=== PATIENT | female | born 1935 | race Two or more races ===

== ENCOUNTER 2016-03-05 13:50 | Outpatient (CLI) | payer MEDICARE, OTHER | END 2016-03-05 13:51 | disposition home or self-care (01) | DX: I48.91 Unspecified atrial fibrillation (principal); Z79.899 Other long term (current) drug therapy ==

== ENCOUNTER 2016-03-26 13:00 | Outpatient (CLI) | payer MEDICARE, OTHER | END 2016-03-26 13:01 | disposition home or self-care (01) | DX: I48.91 Unspecified atrial fibrillation (principal); Z79.899 Other long term (current) drug therapy ==

== ENCOUNTER 2016-04-09 14:09 | Outpatient (CLI) | payer MEDICARE, OTHER | END 2016-04-09 14:10 | disposition home or self-care (01) | DX: I48.91 Unspecified atrial fibrillation (principal); Z79.899 Other long term (current) drug therapy ==

== ENCOUNTER 2016-04-25 13:29 | Outpatient (CLI) | payer MEDICARE, OTHER | END 2016-04-25 13:30 | disposition home or self-care (01) | DX: I48.91 Unspecified atrial fibrillation (principal); I48.0 Paroxysmal atrial fibrillation; Z79.899 Other long term (current) drug therapy; I10 Essential (primary) hypertension ==

== ENCOUNTER 2016-04-29 | Outpatient (CLI) | payer MEDICARE, OTHER | END 2016-04-29 20:14 | disposition EMS.NT ==

== ENCOUNTER 2016-04-30 | Outpatient (CLI) | payer MEDICARE, OTHER | END 2016-04-30 18:10 | disposition short-term general hospital (02) | CPT/HCPCS: A0170; A0425; A0427 ==

== ENCOUNTER 2016-05-27 13:34 | Outpatient (CLI) | payer MEDICARE, OTHER | END 2016-05-27 13:35 | disposition home or self-care (01) | DX: Z53.9 Procedure and treatment not carried out, unspecified reason (principal) ==

== ENCOUNTER 2016-05-28 12:05 | Outpatient (CLI) | payer MEDICARE, OTHER | END 2016-05-28 12:06 | disposition home or self-care (01) | DX: M81.0 Age-related osteoporosis without current pathological fracture (principal); Z78.0 Asymptomatic menopausal state; I48.91 Unspecified atrial fibrillation; Z79.899 Other long term (current) drug therapy ==

== ENCOUNTER 2016-05-28 13:05 | Outpatient (CLI) | payer MEDICARE, OTHER | END 2016-05-28 13:06 | disposition home or self-care (01) | DX: I48.91 Unspecified atrial fibrillation (principal); Z79.899 Other long term (current) drug therapy ==

== ENCOUNTER 2016-06-11 13:57 | Outpatient (CLI) | payer MEDICARE, OTHER | END 2016-06-11 13:58 | disposition home or self-care (01) | DX: I48.91 Unspecified atrial fibrillation (principal); Z79.899 Other long term (current) drug therapy ==

== ENCOUNTER 2016-07-02 13:03 | Outpatient (CLI) | payer MEDICARE, OTHER | END 2016-07-02 13:04 | disposition home or self-care (01) | DX: I48.91 Unspecified atrial fibrillation (principal); Z79.899 Other long term (current) drug therapy ==

== ENCOUNTER 2016-07-16 12:35 | Outpatient (CLI) | payer MEDICARE, OTHER | END 2016-07-16 12:36 | disposition home or self-care (01) | LOC: LAB.F 12:35 | PROVIDERS: ATTEND Internal Medicine Cardiovascular Disease | DX: I48.91 Unspecified atrial fibrillation (principal); Z79.899 Other long term (current) drug therapy | CPT/HCPCS: 85610 ==

== ENCOUNTER 2016-07-30 12:44 | Outpatient (CLI) | payer MEDICARE, OTHER | END 2016-07-30 12:45 | disposition home or self-care (01) | LOC: LAB.F 12:44 | PROVIDERS: ATTEND Internal Medicine Cardiovascular Disease | DX: I48.91 Unspecified atrial fibrillation (principal); Z79.899 Other long term (current) drug therapy | CPT/HCPCS: 85610 ==

== ENCOUNTER 2016-08-20 12:31 | Outpatient (CLI) | payer MEDICARE, OTHER | END 2016-08-20 12:32 | disposition home or self-care (01) | LOC: LAB.F 12:31 | PROVIDERS: ATTEND Internal Medicine Cardiovascular Disease | DX: I48.91 Unspecified atrial fibrillation (principal); Z79.899 Other long term (current) drug therapy | CPT/HCPCS: 85610 ==

== ENCOUNTER 2016-09-09 13:33 | Outpatient (CLI) | payer MEDICARE, OTHER | END 2016-09-09 13:34 | disposition home or self-care (01) | LOC: LAB.F 13:33 | PROVIDERS: ATTEND Internal Medicine Cardiovascular Disease | DX: I48.91 Unspecified atrial fibrillation (principal) | CPT/HCPCS: 85610 ==

== ENCOUNTER 2016-10-01 12:43 | Outpatient (CLI) | payer MEDICARE, OTHER | END 2016-10-01 12:44 | disposition home or self-care (01) | LOC: LAB.F 12:43 | PROVIDERS: ATTEND Internal Medicine Cardiovascular Disease | DX: I48.91 Unspecified atrial fibrillation (principal); Z79.899 Other long term (current) drug therapy | CPT/HCPCS: 85610 ==

== ENCOUNTER 2016-10-21 13:59 | Outpatient (CLI) | payer MEDICARE, OTHER | END 2016-10-21 14:00 | disposition home or self-care (01) | LOC: LAB.F 13:59 | PROVIDERS: ATTEND Internal Medicine Cardiovascular Disease | DX: I48.91 Unspecified atrial fibrillation (principal); Z79.899 Other long term (current) drug therapy | CPT/HCPCS: 85610 ==

== ENCOUNTER 2016-11-12 13:55 | Outpatient (CLI) | payer MEDICARE, OTHER | END 2016-11-12 13:56 | disposition home or self-care (01) | LOC: LAB.F 13:55 | PROVIDERS: ATTEND Internal Medicine Cardiovascular Disease | DX: I48.91 Unspecified atrial fibrillation (principal); Z79.899 Other long term (current) drug therapy | CPT/HCPCS: 85610 ==

== ENCOUNTER 2016-12-09 14:09 | Outpatient (CLI) | payer MEDICARE, OTHER | END 2016-12-09 14:10 | disposition home or self-care (01) | LOC: LAB.F 14:09 | PROVIDERS: ATTEND Internal Medicine Cardiovascular Disease | DX: I48.91 Unspecified atrial fibrillation (principal); Z79.899 Other long term (current) drug therapy | CPT/HCPCS: 85610 ==

== ENCOUNTER 2017-01-22 09:45 | Outpatient (CLI) | payer MEDICARE, OTHER | END 2017-01-22 09:46 | disposition home or self-care (01) | LOC: LAB.F 09:45 | PROVIDERS: ATTEND Internal Medicine | DX: I48.91 Unspecified atrial fibrillation (principal); Z79.899 Other long term (current) drug therapy | CPT/HCPCS: 85610 ==

== ENCOUNTER 2017-02-06 13:22 | Outpatient (CLI) | payer MEDICARE, OTHER | END 2017-02-06 13:23 | disposition home or self-care (01) | LOC: LAB.F 13:22 | PROVIDERS: ATTEND Internal Medicine Cardiovascular Disease | DX: I48.91 Unspecified atrial fibrillation (principal); Z79.899 Other long term (current) drug therapy | CPT/HCPCS: 85610 ==

== ENCOUNTER 2017-02-12 14:03 | Outpatient (CLI) | payer MEDICARE, OTHER | END 2017-02-12 14:04 | disposition home or self-care (01) | LOC: LAB.F 14:03 | PROVIDERS: ATTEND Internal Medicine Cardiovascular Disease | DX: I48.91 Unspecified atrial fibrillation (principal); Z79.899 Other long term (current) drug therapy | CPT/HCPCS: 85610 ==

== ENCOUNTER 2017-02-19 10:14 | Outpatient (CLI) | payer MEDICARE, OTHER | END 2017-02-19 10:15 | disposition home or self-care (01) | LOC: LAB.F 10:14 | PROVIDERS: ATTEND Internal Medicine Cardiovascular Disease | DX: I48.91 Unspecified atrial fibrillation (principal); Z79.899 Other long term (current) drug therapy | CPT/HCPCS: 85610 ==

== ENCOUNTER 2017-03-05 13:30 | Outpatient (CLI) | payer MEDICARE, OTHER | END 2017-03-05 13:31 | disposition home or self-care (01) | LOC: LAB.F 13:30 | PROVIDERS: ATTEND Internal Medicine Cardiovascular Disease | DX: I48.91 Unspecified atrial fibrillation (principal); Z79.899 Other long term (current) drug therapy | CPT/HCPCS: 85610 ==

== ENCOUNTER 2017-03-20 10:00 | Outpatient (CLI) | payer MEDICARE, OTHER | END 2017-03-20 10:01 | disposition home or self-care (01) | LOC: LAB.F 10:00 | PROVIDERS: ATTEND Internal Medicine Cardiovascular Disease | DX: I48.91 Unspecified atrial fibrillation (principal); Z79.899 Other long term (current) drug therapy | CPT/HCPCS: 85610 ==

== ENCOUNTER 2017-04-09 13:22 | Outpatient (CLI) | payer MEDICARE, OTHER | END 2017-04-09 13:23 | disposition home or self-care (01) | LOC: LAB.F 13:22 | PROVIDERS: ATTEND Internal Medicine Cardiovascular Disease | DX: I48.91 Unspecified atrial fibrillation (principal); Z79.899 Other long term (current) drug therapy | CPT/HCPCS: 85610 ==

== ENCOUNTER 2017-04-30 09:49 | Outpatient (CLI) | payer MEDICARE, OTHER | END 2017-04-30 09:50 | disposition home or self-care (01) | LOC: LAB.F 09:49 | PROVIDERS: ATTEND Internal Medicine Cardiovascular Disease | DX: I48.91 Unspecified atrial fibrillation (principal); Z79.899 Other long term (current) drug therapy | CPT/HCPCS: 85610 ==

== ENCOUNTER 2017-05-16 07:09 | Outpatient (CLI) | payer MEDICARE, OTHER ==
[2017-05-16 10:22] LABS: BASOPHILS % (AUTO) 0.6 %; EOSINOPHILS # (AUTO) 0.2 10^3/uL (0.0-0.7); EOSINOPHILS % (AUTO) 2.1 %; HGB - HEMOGLOBIN 12.7 g/dL (12.0-16.0); LYMPHOCYTES # (AUTO) 2.6 10^3/uL (1.5-3.5); LYMPHOCYTES % (AUTO) 33.3 %; MEAN CORPUSCULAR HEMOGLOBIN 26.9 pg (27.0-31.0); MEAN CORPUSCULAR HGB CONC 32.7 g/dL (32.0-36.0); MEAN CORPUSCULAR VOLUME 82.1 fL (81.0-99.0); MEAN PLATELET VOLUME 7.8 fL (7.9-10.8); MONOCYTES # (AUTO) 0.7 10^3/uL (0.0-1.0); MONOCYTES % (AUTO) 9.5 %; NEUTROPHILS # (AUTO) 4.3 10^3/uL (1.5-6.6); NEUTROPHILS % (AUTO) 54.5 %; PLT - PLATELET COUNT 228 10^3/uL (130-450); RED BLOOD COUNT 4.72 10^6/uL (4.20-5.40); RED CELL DISTRIBUTION WIDTH 16.2 % (12.0-15.0); WHITE BLOOD COUNT 7.8 x10^3/uL (4.8-10.8)
[2017-05-16 10:36] LABS: BILIRUBIN,URINE NEGATIVE (NEGATIVE); GLUCOSE, URINE (UA) NEGATIVE (NEGATIVE); KETONES,URINE (UA) NEGATIVE (NEGATIVE); LEUKOCYTE ESTERASE, URINE MODERATE (NEGATIVE); NITRITE,URINE NEGATIVE (NEGATIVE); OCCULT BLOOD,URINE TRACE-INTA (NEGATIVE); PROTEIN,URINE NEGATIVE (NEGATIVE); UROBILINOGEN,URINE 0.2 (NORMAL) E.U./dL (NORMAL)
[2017-05-16 10:37] LABS: ALBUMIN 3.9 g/dL (3.2-5.5); ALBUMIN/GLOBULIN RATIO 1.2 (1.0-2.2); ALKALINE PHOSPHATASE 56 IU/L (42-121); ALT ALANINE AMINOTRANSFERASE 25 IU/L (10-60); AST ASPARTATE AMINOTRANSFERASE 31 IU/L (10-42); BILIRUBIN,TOTAL 0.9 mg/dL (0.2-1.0); BUN - BLOOD UREA NITROGEN 22 mg/dL (6-20); CALCIUM 8.8 mg/dL (8.5-10.3); CARBON DIOXIDE - CO2 26 mmol/L (21-32); CHLORIDE 101 mmol/L (101-111); CHOL/HDL RATIO 2.2 (<4.4); CHOLESTEROL 159 mg/dL; CREATININE 0.7 mg/dL (0.4-1.0); CRP - C-REACTIVE PROTEIN 1.4 mg/dL (0-1.0); GFR - MDRD 81 (>89); GLUCOSE 110 mg/dL (70-100); HDL CHOLESTEROL 73 mg/dL; LDL CHOLESTEROL,CALCULATED 76 mg/dL; SODIUM 134 mmol/L (135-145); TOTAL PROTEIN 7.1 g/dL (6.7-8.2); VLDL CHOLESTEROL 10 mg/dL
[2017-05-16 10:43] LABS: CLARITY,URINE CLEAR (CLEAR)
[2017-05-16 10:45] LABS: HB2 TOTAL 13.7 g/dL; HEMOGLOBIN A1C 0.66 g/dL; HEMOGLOBIN A1C % 6.6 % (4.6-6.2)
[2017-05-16 10:46] LABS: THYROID STIMULATING HORMONE 4.01 uIU/mL (0.34-5.60)
[2017-05-16 10:49] LABS: BACTERIA,URINE Few /HPF (None Seen); RBC,URINE 0-5 /HPF (0-5); SQUAMOUS EPITHELIAL CELL,UR RARE Squamous (<= Few)
[2017-05-16 10:52] LABS: CREATININE,URINE 132.6 mg/dL; MICROALBUMIN,URINE 4.9 mg/dL (0-300.0)
== END 2017-05-16 07:10 | disposition home or self-care (01) ==
LOC: LAB.F 07:09
PROVIDERS: ATTEND Internal Medicine
DX: H11.439 Conjunctival hyperemia, unspecified eye (principal); R25.2 Cramp and spasm; R74.8 Abnormal levels of other serum enzymes; R51 Headache; L29.3 Anogenital pruritus, unspecified; M81.0 Age-related osteoporosis without current pathological fracture; M25.359 Other instability, unspecified hip; R20.2 Paresthesia of skin; I10 Essential (primary) hypertension; I48.91 Unspecified atrial fibrillation; E78.5 Hyperlipidemia, unspecified; E11.9 Type 2 diabetes mellitus without complications; Z79.899 Other long term (current) drug therapy
CPT/HCPCS: 36415; 80053; 80061; 81001; 81003; 82043; 82306; 82570; 82607; 83036; 83721; 83735; 84443; 85025; 85651; 86140; 87086

== ENCOUNTER 2017-05-19 15:43 | Outpatient (CLI) | payer MEDICARE, OTHER ==
--- NOTE | 2017-05-20 17:33 | Mammography Report ---
DIGITAL SCREENING MAMMOGRAM: 05/19/2017 CLINICAL INDICATION: An 81-year-old for screening. COMPARISON: 11/2014, 06/2013, 01/2011, 12/2009. TECHNIQUE: Routine CC and MLO projections as well as bilateral laterally exaggerated craniocaudal views were obtained of the breasts. FINDINGS: The breasts demonstrate heterogeneously dense fibroglandular parenchyma bilaterally. Coarse and punctate, typically benign calcifications are present. No suspicious masses, clustered microcalcifications, or regions of architectural distortion are identified. IMPRESSION: BENIGN FINDINGS. RECOMMENDATION: Routine annual screening unless otherwise clinically indicated. BIRADS category 2 benign findings. STANDARD QUALIFYING STATEMENTS 1. This examination was reviewed with the aid of Computed-Aided Detection (CAD). 2. A negative or benign imaging report should not delay biopsy if clinically suspicious findings are present. Consider surgical consultation if warranted. More than 5% of cancers are not identified by imaging. 3. Dense breasts may obscure an underlying neoplasm. TD: 05/20/2017 17:32
== END 2017-05-19 15:44 | disposition home or self-care (01) ==
LOC: DI.S 15:43
PROVIDERS: ATTEND Internal Medicine
DX: Z12.31 Encounter for screening mammogram for malignant neoplasm of breast (principal)
CPT/HCPCS: 77067

== ENCOUNTER 2017-05-26 13:15 | Outpatient (CLI) | payer MEDICARE, OTHER | END 2017-05-26 13:16 | disposition home or self-care (01) | LOC: LAB.F 13:15 | PROVIDERS: ATTEND Internal Medicine Cardiovascular Disease | DX: I48.91 Unspecified atrial fibrillation (principal); Z79.899 Other long term (current) drug therapy | CPT/HCPCS: 85610 ==

== ENCOUNTER 2017-06-24 14:03 | Outpatient (CLI) | payer MEDICARE, OTHER | END 2017-06-24 14:04 | disposition home or self-care (01) | LOC: LAB.F 14:03 | PROVIDERS: ATTEND Internal Medicine Cardiovascular Disease | DX: I48.91 Unspecified atrial fibrillation (principal); Z79.899 Other long term (current) drug therapy | CPT/HCPCS: 85610 ==

== ENCOUNTER 2017-07-21 14:08 | Outpatient (CLI) | payer MEDICARE, OTHER | END 2017-07-21 14:09 | disposition home or self-care (01) | LOC: LAB.F 14:08 | PROVIDERS: ATTEND Internal Medicine Cardiovascular Disease | DX: I48.91 Unspecified atrial fibrillation (principal); Z79.899 Other long term (current) drug therapy | CPT/HCPCS: 85610 ==

== ENCOUNTER 2017-08-20 14:07 | Outpatient (CLI) | payer MEDICARE, OTHER | END 2017-08-20 14:08 | disposition home or self-care (01) | LOC: LAB.F 14:07 | PROVIDERS: ATTEND Internal Medicine Cardiovascular Disease | DX: I48.91 Unspecified atrial fibrillation (principal); Z79.899 Other long term (current) drug therapy | CPT/HCPCS: 85610 ==

== ENCOUNTER 2017-09-10 13:45 | Outpatient (CLI) | payer MEDICARE, OTHER | END 2017-09-10 13:46 | disposition home or self-care (01) | LOC: LAB.F 13:45 | PROVIDERS: ATTEND Internal Medicine Cardiovascular Disease | DX: I48.91 Unspecified atrial fibrillation (principal); Z79.899 Other long term (current) drug therapy | CPT/HCPCS: 85610 ==

== ENCOUNTER 2017-10-01 13:48 | Outpatient (CLI) | payer MEDICARE, OTHER | END 2017-10-01 13:49 | disposition home or self-care (01) | LOC: LAB.F 13:48 | PROVIDERS: ATTEND Internal Medicine Cardiovascular Disease | DX: I48.91 Unspecified atrial fibrillation (principal); Z79.899 Other long term (current) drug therapy | CPT/HCPCS: 85610 ==

== ENCOUNTER 2017-10-22 13:00 | Outpatient (CLI) | payer MEDICARE, OTHER | END 2017-10-22 13:01 | disposition home or self-care (01) | LOC: LAB.F 13:00 | PROVIDERS: ATTEND Internal Medicine Cardiovascular Disease | DX: I48.91 Unspecified atrial fibrillation (principal); Z79.899 Other long term (current) drug therapy | CPT/HCPCS: 85610 ==

== ENCOUNTER 2017-11-19 13:47 | Outpatient (CLI) | payer MEDICARE, OTHER | END 2017-11-19 13:48 | disposition home or self-care (01) | LOC: LAB.F 13:47 | PROVIDERS: ATTEND Internal Medicine Cardiovascular Disease | DX: I48.91 Unspecified atrial fibrillation (principal); Z79.899 Other long term (current) drug therapy | CPT/HCPCS: 85610 ==

== ENCOUNTER 2017-12-17 14:29 | Outpatient (CLI) | payer MEDICARE, OTHER | END 2017-12-17 14:30 | disposition home or self-care (01) | LOC: LAB.F 14:29 | PROVIDERS: ATTEND Internal Medicine Cardiovascular Disease | DX: I48.91 Unspecified atrial fibrillation (principal); Z79.899 Other long term (current) drug therapy | CPT/HCPCS: 85610 ==

== ENCOUNTER 2018-01-14 13:59 | Outpatient (CLI) | payer MEDICARE, OTHER ==
[2018-01-14 18:23] LABS: INR 2.3 (0.8-1.2); PT - PROTHROMBIN TIME 25.5 secs (9.9-12.6)
[2018-01-14 18:30] LABS: CALCIUM 9.1 mg/dL (8.5-10.3); CREATININE 0.9 mg/dL (0.4-1.0); MAGNESIUM 2.3 mg/dL (1.7-2.8)
[2018-01-14 18:32] LABS: HB2 TOTAL 14.1 g/dL; HEMOGLOBIN A1C 0.65 g/dL; HEMOGLOBIN A1C % 6.4 % (4.6-6.2)
== END 2018-01-14 14:00 | disposition home or self-care (01) ==
LOC: LAB.F 13:59
PROVIDERS: ATTEND Internal Medicine
DX: G47.62 Sleep related leg cramps (principal); E11.9 Type 2 diabetes mellitus without complications; R79.89 Other specified abnormal findings of blood chemistry; I48.91 Unspecified atrial fibrillation; Z79.899 Other long term (current) drug therapy
CPT/HCPCS: 36415; 80048; 82607; 83036; 83735; 85610

== ENCOUNTER 2018-02-11 13:53 | Outpatient (CLI) | payer MEDICARE, OTHER | END 2018-02-11 13:54 | disposition home or self-care (01) | LOC: LAB.F 13:53 | PROVIDERS: ATTEND Internal Medicine Cardiovascular Disease | DX: I48.91 Unspecified atrial fibrillation (principal); Z79.899 Other long term (current) drug therapy | CPT/HCPCS: 85610 ==

== ENCOUNTER 2018-03-11 09:59 | Outpatient (CLI) | payer MEDICARE, OTHER | END 2018-03-11 10:00 | disposition home or self-care (01) | LOC: LAB.F 09:59 | PROVIDERS: ATTEND Internal Medicine Cardiovascular Disease | DX: I48.91 Unspecified atrial fibrillation (principal); Z79.899 Other long term (current) drug therapy | CPT/HCPCS: 85610 ==

== ENCOUNTER 2018-04-08 13:39 | Outpatient (CLI) | payer MEDICARE, OTHER | END 2018-04-08 13:40 | disposition home or self-care (01) | LOC: LAB.F 13:39 | PROVIDERS: ATTEND Internal Medicine Cardiovascular Disease | DX: I48.91 Unspecified atrial fibrillation (principal); Z79.899 Other long term (current) drug therapy | CPT/HCPCS: 85610 ==

== ENCOUNTER 2018-04-29 09:58 | Outpatient (CLI) | payer MEDICARE, OTHER | END 2018-04-29 09:59 | disposition home or self-care (01) | LOC: LAB.F 09:58 | PROVIDERS: ATTEND Internal Medicine Cardiovascular Disease | DX: I48.91 Unspecified atrial fibrillation (principal); Z79.899 Other long term (current) drug therapy | CPT/HCPCS: 85610 ==

== ENCOUNTER 2018-05-20 09:50 | Outpatient (CLI) | payer MEDICARE, OTHER | END 2018-05-20 09:51 | disposition home or self-care (01) | LOC: LAB.F 09:50 | PROVIDERS: ATTEND Internal Medicine Cardiovascular Disease | DX: I48.91 Unspecified atrial fibrillation (principal); Z79.899 Other long term (current) drug therapy | CPT/HCPCS: 85610 ==

== ENCOUNTER 2018-06-03 09:36 | Outpatient (CLI) | payer MEDICARE, OTHER | END 2018-06-03 09:37 | disposition home or self-care (01) | LOC: LAB.F 09:36 | PROVIDERS: ATTEND Internal Medicine Cardiovascular Disease | DX: I48.91 Unspecified atrial fibrillation (principal); Z79.899 Other long term (current) drug therapy | CPT/HCPCS: 85610 ==

== ENCOUNTER 2018-06-24 09:51 | Outpatient (CLI) | payer MEDICARE, OTHER | END 2018-06-24 09:52 | disposition home or self-care (01) | LOC: LAB.F 09:51 | PROVIDERS: ATTEND Internal Medicine Cardiovascular Disease | DX: I48.91 Unspecified atrial fibrillation (principal); Z79.899 Other long term (current) drug therapy | CPT/HCPCS: 85610 ==

== ENCOUNTER 2018-07-21 12:46 | Outpatient (CLI) | payer MEDICARE, OTHER | END 2018-07-21 12:47 | disposition home or self-care (01) | LOC: LAB.F 12:46 | PROVIDERS: ATTEND Internal Medicine Cardiovascular Disease | DX: I48.91 Unspecified atrial fibrillation (principal); Z79.899 Other long term (current) drug therapy | CPT/HCPCS: 85610 ==

== ENCOUNTER 2018-08-18 12:54 | Outpatient (CLI) | payer MEDICARE, OTHER | END 2018-08-18 12:55 | disposition home or self-care (01) | LOC: LAB.F 12:54 | PROVIDERS: ATTEND Internal Medicine Cardiovascular Disease | DX: I48.91 Unspecified atrial fibrillation (principal); Z79.899 Other long term (current) drug therapy | CPT/HCPCS: 85610 ==

== ENCOUNTER 2018-09-15 10:40 | Outpatient (CLI) | payer MEDICARE, OTHER | END 2018-09-15 10:41 | disposition home or self-care (01) | LOC: LAB.S 10:40 | PROVIDERS: ATTEND Internal Medicine Cardiovascular Disease | DX: I48.91 Unspecified atrial fibrillation (principal); Z79.899 Other long term (current) drug therapy | CPT/HCPCS: 85610 ==

== ENCOUNTER 2018-10-12 12:27 | Outpatient (CLI) | payer MEDICARE, OTHER | END 2018-10-12 12:28 | disposition home or self-care (01) | LOC: LAB.S 12:27 | PROVIDERS: ATTEND Internal Medicine Cardiovascular Disease | DX: I48.91 Unspecified atrial fibrillation (principal); Z79.899 Other long term (current) drug therapy | CPT/HCPCS: 85610 ==

== ENCOUNTER 2018-11-09 11:19 | Outpatient (CLI) | payer MEDICARE, OTHER | END 2018-11-09 11:20 | disposition home or self-care (01) | LOC: LAB.S 11:19 | PROVIDERS: ATTEND Internal Medicine Cardiovascular Disease | DX: I48.91 Unspecified atrial fibrillation (principal); Z79.899 Other long term (current) drug therapy | CPT/HCPCS: 85610 ==

== ENCOUNTER 2018-12-07 11:48 | Outpatient (CLI) | payer MEDICARE, OTHER | END 2018-12-07 11:49 | disposition home or self-care (01) | LOC: LAB.S 11:48 | PROVIDERS: ATTEND Internal Medicine Cardiovascular Disease | DX: I48.91 Unspecified atrial fibrillation (principal); Z79.899 Other long term (current) drug therapy | CPT/HCPCS: 85610 ==

== ENCOUNTER 2019-01-04 12:14 | Outpatient (CLI) | payer MEDICARE, OTHER ==
[2019-01-04 18:11] LABS: MEAN CORPUSCULAR HEMOGLOBIN 25.5 pg (27.0-31.0); MEAN CORPUSCULAR HGB CONC 30.1 g/dL (32.0-36.0); MEAN CORPUSCULAR VOLUME 84.7 fL (81.0-99.0); MEAN PLATELET VOLUME 9.8 fL (7.9-10.8); RED BLOOD COUNT 5.1 10^6/uL (4.20-5.40); RED CELL DISTRIBUTION WIDTH 18.4 % (12.0-15.0); WHITE BLOOD COUNT 6.6 x10^3/uL (4.8-10.8)
[2019-01-04 18:36] LABS: CALCIUM 9.4 mg/dL (8.5-10.3); CREATININE 0.8 mg/dL (0.4-1.0)
== END 2019-01-04 12:15 | disposition home or self-care (01) ==
LOC: LAB.S 12:14
PROVIDERS: ATTEND Internal Medicine
DX: I10 Essential (primary) hypertension (principal); Z51.81 Encounter for therapeutic drug level monitoring; Z79.01 Long term (current) use of anticoagulants; I48.0 Paroxysmal atrial fibrillation; Z79.899 Other long term (current) drug therapy
CPT/HCPCS: 36415; 80048; 85027; 85610

== ENCOUNTER 2019-01-18 12:14 | Outpatient (CLI) | payer MEDICARE, OTHER | END 2019-01-18 12:15 | disposition home or self-care (01) | LOC: LAB.S 12:14 | PROVIDERS: ATTEND Internal Medicine Cardiovascular Disease | DX: I48.91 Unspecified atrial fibrillation (principal); Z79.899 Other long term (current) drug therapy | CPT/HCPCS: 85610 ==

== ENCOUNTER 2019-02-08 12:19 | Outpatient (CLI) | payer MEDICARE, OTHER | END 2019-02-08 12:20 | disposition home or self-care (01) | LOC: LAB.S 12:19 | PROVIDERS: ATTEND Internal Medicine Cardiovascular Disease | DX: Z79.899 Other long term (current) drug therapy (principal); I48.91 Unspecified atrial fibrillation | CPT/HCPCS: 85610 ==

== ENCOUNTER 2019-03-08 12:29 | Outpatient (CLI) | payer MEDICARE, OTHER | END 2019-03-08 12:30 | disposition home or self-care (01) | LOC: LAB.S 12:29 | PROVIDERS: ATTEND Internal Medicine Cardiovascular Disease | DX: I48.91 Unspecified atrial fibrillation (principal); Z79.899 Other long term (current) drug therapy | CPT/HCPCS: 85610 ==

== ENCOUNTER 2019-03-22 11:11 | Outpatient (CLI) | payer MEDICARE, OTHER | END 2019-03-22 11:12 | disposition home or self-care (01) | LOC: LAB.S 11:11 | PROVIDERS: ATTEND Internal Medicine Cardiovascular Disease | DX: I48.91 Unspecified atrial fibrillation (principal); Z79.899 Other long term (current) drug therapy | CPT/HCPCS: 85610 ==

== ENCOUNTER 2019-04-02 11:41 | Outpatient (CLI) | payer MEDICARE, OTHER | END 2019-04-02 11:42 | disposition home or self-care (01) | LOC: LAB.S 11:41 | PROVIDERS: ATTEND Internal Medicine Cardiovascular Disease | DX: I48.91 Unspecified atrial fibrillation (principal); Z79.899 Other long term (current) drug therapy | CPT/HCPCS: 85610 ==

== ENCOUNTER 2019-04-26 14:29 | Outpatient (CLI) | payer MEDICARE, OTHER | END 2019-04-26 14:30 | disposition home or self-care (01) | LOC: LAB.S 14:29 | PROVIDERS: ATTEND Internal Medicine Cardiovascular Disease | DX: I48.91 Unspecified atrial fibrillation (principal); Z79.899 Other long term (current) drug therapy | CPT/HCPCS: 85610 ==

== ENCOUNTER 2019-05-06 07:13 | Outpatient (CLI) | payer MEDICARE, OTHER ==
[2019-05-06 10:26] LABS: BASOPHILS # (AUTO) 0.1 10^3/uL (0.0-0.1); BASOPHILS % (AUTO) 1.2 %; EOSINOPHILS # (AUTO) 0.1 10^3/uL (0.0-0.7); EOSINOPHILS % (AUTO) 2.1 %; LYMPHOCYTES # (AUTO) 2.7 10^3/uL (1.5-3.5); LYMPHOCYTES % (AUTO) 46.5 %; MEAN CORPUSCULAR HGB CONC 31.9 g/dL (32.0-36.0); MEAN CORPUSCULAR VOLUME 87.8 fL (81.0-99.0); MEAN PLATELET VOLUME 10.3 fL (7.9-10.8); MONOCYTES # (AUTO) 0.5 10^3/uL (0.0-1.0); MONOCYTES % (AUTO) 9.5 %; NEUTROPHILS # (AUTO) 2.3 10^3/uL (1.5-6.6); NEUTROPHILS % (AUTO) 40.3 %; PLT - PLATELET COUNT 245 10^3/uL (130-450); RED CELL DISTRIBUTION WIDTH 16.5 % (12.0-15.0); WHITE BLOOD COUNT 5.7 x10^3/uL (4.8-10.8)
[2019-05-06 10:45] LABS: ALBUMIN 4.2 g/dL (3.2-5.5); ALBUMIN/GLOBULIN RATIO 1.4 (1.0-2.2); ALKALINE PHOSPHATASE 48 IU/L (42-121); ALT ALANINE AMINOTRANSFERASE 29 IU/L (10-60); AST ASPARTATE AMINOTRANSFERASE 32 IU/L (10-42); BILIRUBIN,TOTAL 0.9 mg/dL (0.2-1.0); BUN - BLOOD UREA NITROGEN 21 mg/dL (6-20); CALCIUM 9.1 mg/dL (8.5-10.3); CARBON DIOXIDE - CO2 27 mmol/L (21-32); CHLORIDE 102 mmol/L (101-111); CHOL/HDL RATIO 2.3 (<4.4); CHOLESTEROL 179 mg/dL; CREATININE 0.8 mg/dL (0.4-1.0); GFR - MDRD 69 (>89); GLUCOSE 107 mg/dL (70-100); HDL CHOLESTEROL 77 mg/dL; LDL CHOLESTEROL,CALCULATED 92 mg/dL; LDL/HDL RATIO 1.2 (<4.4); MAGNESIUM 2.2 mg/dL (1.7-2.8); SODIUM 137 mmol/L (135-145); TOTAL PROTEIN 7.3 g/dL (6.7-8.2); VLDL CHOLESTEROL 10 mg/dL
[2019-05-06 10:54] LABS: THYROID STIMULATING HORMONE 4.91 uIU/mL (0.34-5.60)
[2019-05-06 11:02] LABS: HB2 TOTAL 14.5 g/dL; HEMOGLOBIN A1C 0.76 g/dL; HEMOGLOBIN A1C % 6.9 % (4.6-6.2)
[2019-05-06 17:27] LABS: BILIRUBIN,URINE NEGATIVE (NEGATIVE); GLUCOSE, URINE (UA) NEGATIVE (NEGATIVE); KETONES,URINE (UA) NEGATIVE (NEGATIVE); LEUKOCYTE ESTERASE, URINE TRACE (NEGATIVE); NITRITE,URINE NEGATIVE (NEGATIVE); OCCULT BLOOD,URINE NEGATIVE (NEGATIVE); PROTEIN,URINE NEGATIVE (NEGATIVE); UROBILINOGEN,URINE 0.2 (NORMAL) E.U./dL (NORMAL)
[2019-05-06 17:31] LABS: CLARITY,URINE CLEAR (CLEAR)
[2019-05-06 17:35] LABS: CREATININE,URINE 97.6 mg/dL; MICROALBUM/CREATININE RATIO,UR 44.1 ug/mg (<30.0); MICROALBUMIN,URINE 4.3 mg/dL (0-300.0)
[2019-05-06 17:44] LABS: BACTERIA,URINE Rare /HPF (None Seen); CASTS, URINE 0-2 Hyaline Casts /LPF; RBC,URINE 0-5 /HPF (0-5); SQUAMOUS EPITHELIAL CELL,UR FEW Squamous (<= Few)
== END 2019-05-06 07:14 | disposition home or self-care (01) ==
LOC: LAB.S 07:13
PROVIDERS: ATTEND Internal Medicine
DX: M79.601 Pain in right arm (principal); Z79.899 Other long term (current) drug therapy; Z13.6 Encounter for screening for cardiovascular disorders; R25.2 Cramp and spasm; I10 Essential (primary) hypertension; I48.91 Unspecified atrial fibrillation; R74.8 Abnormal levels of other serum enzymes; E78.5 Hyperlipidemia, unspecified; E11.9 Type 2 diabetes mellitus without complications; M81.0 Age-related osteoporosis without current pathological fracture
CPT/HCPCS: 36415; 80053; 80061; 81001; 81003; 82043; 82570; 82607; 83036; 83721; 83735; 84443; 85025; 87086

== ENCOUNTER 2019-05-24 13:24 | Outpatient (CLI) | payer MEDICARE, OTHER | END 2019-05-24 13:25 | disposition home or self-care (01) | LOC: LAB.S 13:24 | PROVIDERS: ATTEND Internal Medicine Cardiovascular Disease | DX: I48.91 Unspecified atrial fibrillation (principal); Z79.899 Other long term (current) drug therapy | CPT/HCPCS: 85610 ==

== ENCOUNTER 2019-06-29 12:10 | Outpatient (CLI) | payer MEDICARE, OTHER | END 2019-06-29 12:11 | disposition home or self-care (01) | LOC: LAB 12:10 | PROVIDERS: ATTEND Internal Medicine Cardiovascular Disease | DX: I48.91 Unspecified atrial fibrillation (principal); Z79.899 Other long term (current) drug therapy | CPT/HCPCS: 85610 ==

== ENCOUNTER 2019-08-09 13:09 | Outpatient (CLI) | payer MEDICARE, OTHER | END 2019-08-09 13:10 | disposition home or self-care (01) | LOC: LAB.S 13:09 | PROVIDERS: ATTEND Internal Medicine Cardiovascular Disease | DX: I48.91 Unspecified atrial fibrillation (principal); Z79.899 Other long term (current) drug therapy | CPT/HCPCS: 85610 ==

== ENCOUNTER 2019-09-20 14:31 | Outpatient (CLI) | payer MEDICARE, OTHER | END 2019-09-20 14:32 | disposition home or self-care (01) | LOC: LAB.S 14:31 | PROVIDERS: ATTEND Internal Medicine Cardiovascular Disease | DX: I48.91 Unspecified atrial fibrillation (principal); Z79.899 Other long term (current) drug therapy | CPT/HCPCS: 85610 ==

== ENCOUNTER 2019-11-01 12:23 | Outpatient (CLI) | payer MEDICARE, OTHER | END 2019-11-01 12:24 | disposition home or self-care (01) | LOC: LAB.S 12:23 | PROVIDERS: ATTEND Internal Medicine Cardiovascular Disease | DX: I48.91 Unspecified atrial fibrillation (principal); Z79.899 Other long term (current) drug therapy | CPT/HCPCS: 85610 ==

== ENCOUNTER 2019-11-15 10:25 | Outpatient (CLI) | payer MEDICARE, OTHER | END 2019-11-15 10:26 | disposition critical access hospital (66) | LOC: EMS 10:25 | PROVIDERS: ATTEND Surgery | DX: R42 Dizziness and giddiness (principal) | CPT/HCPCS: A0425; A0427 ==

== ENCOUNTER 2019-11-15 10:55 | Emergency (ER) | payer MEDICARE, OTHER ==
[2019-11-15 11:36] LABS: BASOPHILS % (AUTO) 0.7 %; EOSINOPHILS % (AUTO) 0.2 %; HGB - HEMOGLOBIN 14.7 g/dL (12.0-16.0); LYMPHOCYTES # (AUTO) 0.8 10^3/uL (1.5-3.5); LYMPHOCYTES % (AUTO) 13.8 %; MEAN CORPUSCULAR HEMOGLOBIN 29.3 pg (27.0-31.0); MEAN CORPUSCULAR HGB CONC 33.3 g/dL (32.0-36.0); MEAN PLATELET VOLUME 8.6 fL (7.9-10.8); MONOCYTES # (AUTO) 0.2 10^3/uL (0.0-1.0); NEUTROPHILS # (AUTO) 4.6 10^3/uL (1.5-6.6); NEUTROPHILS % (AUTO) 80.9 %; PLT - PLATELET COUNT 206 10^3/uL (130-450); RED BLOOD COUNT 5.01 10^6/uL (4.20-5.40); RED CELL DISTRIBUTION WIDTH 14.2 % (12.0-15.0); WHITE BLOOD COUNT 5.7 x10^3/uL (4.8-10.8)
[2019-11-15 11:49] LABS: ALBUMIN 4.3 g/dL (3.2-5.5); ALBUMIN/GLOBULIN RATIO 1.3 (1.0-2.2); BILIRUBIN,TOTAL 0.8 mg/dL (0.2-1.0); CALCIUM 8.9 mg/dL (8.5-10.3); CREATININE 0.7 mg/dL (0.4-1.0); TOTAL PROTEIN 7.5 g/dL (6.7-8.2)
--- NOTE | 2019-11-15 11:59 | ED Physician Documentation ---
PD HPI HEENT - Stated complaint Stated Complaint: DIZZY - Chief complaint Chief Complaint: Cardiac - History obtained from History obtained from: Patient, EMS - History of Present Illness Timing - onset: How many hours ago (3-4 hours ago, rolled over in bed and had onset of spinning/vertigo sensation. It decreased but is still present when turning head or sitting up. She attributes it to heart rate, as EMS noted her HR to be slightly elevated at 110 atrial fib. Pt with history of paroxysmal fib in the past.) Timing - duration: Hours Timing - details: Abrupt onset, Still present, Waxing and waning (worse with head movement and better rested.) Worsens: Position Associated symptoms: No: Fever, Congestion, Rhinorrhea, Headache, Cough Similar symptoms before: Diagnosis (she says she had similar symptoms with fast atrial fib in the past. I ask her to clarify if was this vertiog symptom vs lightheaded and she recalls that it was more vertigo.) Recently seen: Not recently seen (has not been to [facility] since pacer placement 2016. Has done pacer checks q3 months, but this just says if pacer working, and not a rhythm interrogation.) Review of Systems Constitutional: denies: Fever Ears: denies: Ear pain, Tinnitus/ringing Nose: denies: Rhinorrhea / runny nose, Congestion, Sinus pressure / pain Throat: denies: Sore throat Cardiac: denies: Chest pain / pressure, Palpitations, Pedal edema, Calf pain Respiratory: denies: Dyspnea, Cough GI: denies: Abdominal Pain, Nausea, Vomiting : denies: Dysuria, Frequency Skin: denies: Rash Neurologic: denies: Focal weakness, Numbness, Near syncope (but having spinning/vertigo feeling with movement.) PD PAST MEDICAL HISTORY - Past Medical History Cardiovascular: Hypertension, Atrial fibrillation Respiratory: None Neuro: None Endocrine/Autoimmune: Type 2 diabetes GI: None DOUBLE CUTTER: None : None HEENT: None Psych: None Musculoskeletal: None Derm: None - Past Surgical History Past Surgical History: Yes /DOUBLE CUTTER: Hysterectomy Cardiovascular: Pacemaker (2017) HEENT: Tonsil/Adenoidectomy - Present Medications Home Medications: Ambulatory Orders Medication Instructions Recorded Confirmed Amlodipine Besylate 5 mg ORAL DAILY 02/08/14 04/23/14 Flecainide [Tambocar] 50 mg ORAL BID 02/08/14 04/23/14 Losartan [Cozaar] 100 mg ORAL DAILY 02/08/14 04/23/14 Metoprolol Succinate 200 mg ORAL DAILY 02/08/14 04/23/14 Warfarin [Coumadin] 3 mg PO 04/23/14 04/23/14 Meclizine [Antivert] 12.5 mg PO Q6H PRN #20 tablet 11/15/19 - Allergies Allergies/Adverse Reactions: Allergies Allergy/AdvReac Type Severity Reaction Status Date / Time codiene Allergy Unknown Uncoded 04/23/14 10:42 - Social History Does the pt smoke?: No Smoking Status: Never smoker Does the pt drink ETOH?: No Does the pt have substance abuse?: No - Immunizations Immunizations are current?: Yes - POLST Patient has POLST: No PD ED PE NORMAL - Vitals Vital signs reviewed: Yes - General General: Alert and oriented X 3, No acute distress, Well developed/nourished - HEENT HEENT: PERRL, EOMI (mild nystagmus to the left horizontally), Moist mucous membranes, Pharynx benign - Neck Neck: Supple, no meningeal sign, No adenopathy, No bruit - Cardiac Cardiac: No: RRR (irregular but rate controlled. No noted murmur. ) - Respiratory Respiratory: No respiratory distress, Clear bilaterally - Abdomen Abdomen: Soft, Non tender - Back Back: No CVA TTP - Derm Derm: Normal color, Warm and dry - Extremities Extremities: No tenderness to palpate, Normal ROM s pain, No edema, No calf tenderness / cord - Neuro Neuro: Alert and oriented X 3, electronics specialist 2-12 intact, No motor deficit, No sensory deficit, Normal speech Results - Vitals Vitals: Vital Signs - 24 hr 11/15/19 11/15/19 11/15/19 10:59 11:10 11:30 Temperature 36.8 C Heart Rate 84 88 82 Respiratory 16 14 13 Rate Blood Pressure 128/72 143/91 H 127/103 H O2 Saturation 100 100 99 11/15/19 11/15/19 11/15/19 12:00 12:30 12:45 Temperature Heart Rate 84 110 H 105 H Respiratory 12 16 16 Rate Blood Pressure 141/91 H 138/78 H 135/78 H O2 Saturation 99 100 100 11/15/19 11/15/19 11/15/19 12:49 13:00 13:30 Temperature Heart Rate 93 85 90 Respiratory 16 16 16 Rate Blood Pressure 140/90 H 128/73 123/77 O2 Saturation 100 100 99 11/15/19 11/15/19 11/15/19 14:00 14:29 14:30 Temperature Heart Rate 110 H 96 117 H Respiratory 18 16 16 Rate Blood Pressure 144/86 H 136/88 H 136/80 H O2 Saturation 100 100 100 11/15/19 11/15/19 14:59 15:52 Temperature Heart Rate 100 99 Respiratory 16 16 Rate Blood Pressure 132/78 H 132/78 H O2 Saturation 100 100 Oxygen O2 Source [Without Activity] Room air O2 Source Room air - EKG (time done) 10:57 Rate: Rate (enter#) (84) Rhythm: Atrial fibrillation [place]: Normal QRS: Poor R wave progression Ischemia: Normal ST segments, Non specific changes. No: ST elevation c/w ischemia, ST depression - Labs Labs: Laboratory Tests 11/15/19 11/15/19 11/15/19 11:30 11:30 11:30 WBC 5.7 RBC 5.01 Hgb 14.7 Hct 44.1 MCV 88.0 MCH 29.3 MCHC 33.3 RDW 14.2 Plt Count 206 MPV 8.6 Neut # (Auto) 4.6 Lymph # (Auto) 0.8 L [place] # (Auto) 0.2 Eos # (Auto) 0.0 Baso # (Auto) 0.0 Absolute Nucleated RBC 0.00 Nucleated RBC % 0.0 PT INR Sodium 135 Potassium 3.9 Chloride 99 L Carbon Dioxide 24 Anion Gap 12.0 BUN 20 Creatinine 0.7 Estimated GFR (MDRD) 80 L Glucose 180 H Calcium 8.9 Total Bilirubin 0.8 AST 35 ALT 29 Alkaline Phosphatase 47 Troponin I High Sens 6.8 Total Protein 7.5 Albumin 4.3 Globulin 3.2 Albumin/Globulin Ratio 1.3 Lipase 20 L 11/15/19 11:30 WBC RBC Hgb Hct MCV MCH MCHC RDW Plt Count MPV Neut # (Auto) Lymph # (Auto) [place] # (Auto) Eos # (Auto) Baso # (Auto) Absolute Nucleated RBC Nucleated RBC % PT 34.0 H INR 3.3 H Sodium Potassium Chloride Carbon Dioxide Anion Gap BUN Creatinine Estimated GFR (MDRD) Glucose Calcium Total Bilirubin AST ALT Alkaline Phosphatase Troponin I High Sens Total Protein Albumin Globulin Albumin/Globulin Ratio Lipase - Rads (name of study) head CT Radiology: Prelim report reviewed (no ICH nor acute process. ), See rad report PD MEDICAL DECISION MAKING - ED course Complexity details: reviewed results (head CT okay. Symptoms c/w peripheral vertigo. Does not seem atrial fib related, but did discuss it with Cardiology cook station. ), re-evaluated patient (Feeling better after Meclizine and/or time. Minimal vertigo now. ), considered differential (she describes vertigo, worse with head movement. Has mild nystagmus. She insists it relates to her heart rate, which is rate controlled. ), d/w patient, d/w legal nurse consultant (Cardiology cook station - no office visit since 2016. Pacer checks show normal pacer function q3 months but has not had rhythm interrogations/download. So unknown currently how often or if chronic atrial fib. ) Departure - Departure Disposition: Home, Self Care Clinical Impression: Positional vertigo Atrial fibrillation Qualifiers: Atrial fibrillation type: unspecified Qualified Code(s): I48.91 - Unspecified atrial fibrillation Condition: Stable Record reviewed to determine appropriate education?: Yes Instructions: ED Afib, ED Vertigo Unspecified Follow-Up: Iza Danielle MD [Primary Care Provider] - Vikas Arambula MD [Provider Admit Priv/Credential] - Prescriptions: Meclizine [Antivert] 12.5 mg PO Q6H PRN #20 tablet PRN Reason: Vertigo Comments: Stay well-hydrated. Continue usual Coumadin. I talked with 1 of the cardiologists from Dr. Otto's office and he suggested that you go to see them. For the fibrillation, you could increase your metoprolol which currently is 100 mg in the evening. You could add 50 mg or 1/2 tablet in the mornings as well and hold your amlodipine for now so we do not have too much of an effect on your blood pressure. The dizziness you are having may actually be from your inner ear as a cause of vertigo so you can also use meclizine every 6 hours if needed for vertigo. Discharge Date/Time: 11/15/19 15:52
[2019-11-15] MEDS: MECLIZINE 12.5 MG TABLET PO STA (12:36)
[2019-11-15] MEDS: METOPROLOL 5 MG/5 ML VIAL IVP STA ×2 (12:36→14:14)
[2019-11-15 12:37] LABS: INR 3.3 (0.8-1.2)
--- NOTE | 2019-11-15 13:50 | CT Report ---
PROCEDURE: HEAD WO INDICATIONS: dizziness TECHNIQUE: Noncontrast 4.5 mm thick angled axial sections acquired from the foramen magnum to the vertex. For r adiation dose reduction, the following was used: automated exposure control, adjustment of mA and/or kV according to patient size. COMPARISON: 02/08/2014. FINDINGS: Image quality: Excellent. CSF spaces: Basal cisterns are patent. No extra-axial fluid collections. The ventricles are symmet tiara in size and shape. Brain: No intracranial bleeds or masses. There is cerebral volume loss for age, with resultant vent ricular and sulcal prominence. There are periventricular and deep white matter chronic small vessel ischemic changes. There is intracranial internal carotid artery atherosclerosis. Skull and face: Calvarium and visualized facial bones appear intact, without suspicious lesions. Sinuses: Visualized sinuses and mastoids are clear. IMPRESSION: No CT evidence of acute intracranial pathology. No significant changes from previous study. Reviewed by: Everett Avalos MD on 11/15/2019 1:49 PM PDT Approved by: Everett Avalos MD on 11/15/2019 1:49 PM PDT Station ID: [id number]
[2019-11-15 15:00] VITALS: BP 132/78
== END 2019-11-15 15:52 | disposition home or self-care (01) ==
LOC: EDUNIT# → ED 10:55
DX: H81.10 Benign paroxysmal vertigo, unspecified ear (principal); I48.91 Unspecified atrial fibrillation; I10 Essential (primary) hypertension; Z79.84 Long term (current) use of oral hypoglycemic drugs; Z79.01 Long term (current) use of anticoagulants
CPT/HCPCS: 36415; 70450; 80053; 83690; 84484; 85025; 85610; 93005; 96374; 96376; 99284; A9270

== ENCOUNTER 2019-11-17 11:15 | Outpatient (CLI) | payer MEDICARE, OTHER | END 2019-11-17 11:16 | disposition short-term general hospital (02) | LOC: EMS 11:15 | PROVIDERS: ATTEND Surgery | DX: R42 Dizziness and giddiness (principal) | CPT/HCPCS: A0425; A0427 ==

== ENCOUNTER 2019-12-14 12:40 | Outpatient (CLI) | payer MEDICARE, OTHER | END 2019-12-14 12:41 | disposition home or self-care (01) | LOC: LAB.S 12:40 | PROVIDERS: ATTEND Internal Medicine Cardiovascular Disease | DX: Z51.81 Encounter for therapeutic drug level monitoring (principal); Z79.899 Other long term (current) drug therapy | CPT/HCPCS: 85610 ==

== ENCOUNTER 2020-01-24 12:13 | Outpatient (CLI) | payer MEDICARE, OTHER | END 2020-01-24 12:14 | disposition home or self-care (01) | LOC: LAB.S 12:13 | PROVIDERS: ATTEND Internal Medicine Cardiovascular Disease | DX: Z51.81 Encounter for therapeutic drug level monitoring (principal); Z79.899 Other long term (current) drug therapy | CPT/HCPCS: 85610 ==

== ENCOUNTER 2020-02-07 13:26 | Outpatient (CLI) | payer MEDICARE, OTHER | END 2020-02-07 13:27 | disposition home or self-care (01) | LOC: LAB.S 13:26 | PROVIDERS: ATTEND Internal Medicine Cardiovascular Disease | DX: Z51.81 Encounter for therapeutic drug level monitoring (principal); Z79.899 Other long term (current) drug therapy | CPT/HCPCS: 85610 ==

== ENCOUNTER 2020-02-21 11:04 | Outpatient (CLI) | payer MEDICARE, OTHER | END 2020-02-21 11:05 | disposition home or self-care (01) | LOC: LAB.S 11:04 | PROVIDERS: ATTEND Internal Medicine Cardiovascular Disease | DX: Z51.81 Encounter for therapeutic drug level monitoring (principal); Z79.899 Other long term (current) drug therapy | CPT/HCPCS: 85610 ==

== ENCOUNTER 2020-03-07 13:37 | Outpatient (CLI) | payer MEDICARE, OTHER | END 2020-03-07 13:38 | disposition home or self-care (01) | LOC: LAB.S 13:37 | PROVIDERS: ATTEND Internal Medicine Cardiovascular Disease | DX: Z51.81 Encounter for therapeutic drug level monitoring (principal); Z79.899 Other long term (current) drug therapy | CPT/HCPCS: 85610 ==

== ENCOUNTER 2020-04-03 13:16 | Outpatient (CLI) | payer MEDICARE, OTHER | END 2020-04-03 13:17 | disposition home or self-care (01) | LOC: LAB.S 13:16 | PROVIDERS: ATTEND Internal Medicine Cardiovascular Disease | DX: Z51.81 Encounter for therapeutic drug level monitoring (principal); Z79.899 Other long term (current) drug therapy | CPT/HCPCS: 85610 ==

== ENCOUNTER 2020-05-01 12:29 | Outpatient (CLI) | payer MEDICARE, OTHER | END 2020-05-01 12:30 | disposition home or self-care (01) | LOC: LAB.S 12:29 | PROVIDERS: ATTEND Internal Medicine Cardiovascular Disease | DX: Z51.81 Encounter for therapeutic drug level monitoring (principal); Z79.899 Other long term (current) drug therapy | CPT/HCPCS: 85610 ==

== ENCOUNTER 2020-05-10 07:25 | Outpatient (CLI) | payer MEDICARE, OTHER ==
[2020-05-10 14:51] LABS: BASOPHILS # (AUTO) 0.1 10^3/uL (0.0-0.1); BASOPHILS % (AUTO) 0.9 %; EOSINOPHILS # (AUTO) 0.2 10^3/uL (0.0-0.7); EOSINOPHILS % (AUTO) 2.7 %; HCT - HEMATOCRIT 45.9 % (37.0-47.0); HGB - HEMOGLOBIN 14.4 g/dL (12.0-16.0); LYMPHOCYTES % (AUTO) 34.7 %; MEAN CORPUSCULAR HEMOGLOBIN 28.3 pg (27.0-31.0); MEAN CORPUSCULAR HGB CONC 31.4 g/dL (32.0-36.0); MEAN CORPUSCULAR VOLUME 90.4 fL (81.0-99.0); MEAN PLATELET VOLUME 10.1 fL (7.9-10.8); MONOCYTES # (AUTO) 0.5 10^3/uL (0.0-1.0); MONOCYTES % (AUTO) 8.7 %; NEUTROPHILS % (AUTO) 52.6 %; PLT - PLATELET COUNT 252 10^3/uL (130-450); RED BLOOD COUNT 5.08 10^6/uL (4.20-5.40); RED CELL DISTRIBUTION WIDTH 16.6 % (12.0-15.0); WHITE BLOOD COUNT 5.7 x10^3/uL (4.8-10.8)
[2020-05-10 15:46] LABS: ALBUMIN 4.2 g/dL (3.2-5.5); ALBUMIN/GLOBULIN RATIO 1.2 (1.0-2.2); ALKALINE PHOSPHATASE 47 IU/L (42-121); ALT ALANINE AMINOTRANSFERASE 25 IU/L (10-60); AST ASPARTATE AMINOTRANSFERASE 31 IU/L (10-42); BILIRUBIN,TOTAL 0.7 mg/dL (0.2-1.0); BUN - BLOOD UREA NITROGEN 27 mg/dL (6-20); CALCIUM 9.5 mg/dL (8.5-10.3); CARBON DIOXIDE - CO2 27 mmol/L (21-32); CHLORIDE 103 mmol/L (101-111); CHOL/HDL RATIO 2.6 (<4.4); CHOLESTEROL 208 mg/dL; CREATININE 0.9 mg/dL (0.4-1.0); GFR - MDRD 60 (>89); GLUCOSE 111 mg/dL (70-100); HDL CHOLESTEROL 81 mg/dL; LDL CHOLESTEROL,CALCULATED 114 mg/dL; LDL/HDL RATIO 1.4 (<4.4); POTASSIUM 3.9 mmol/L (3.5-5.0); SODIUM 137 mmol/L (135-145); TOTAL PROTEIN 7.7 g/dL (6.7-8.2); TRIGLYCERIDES 64 mg/dL; VLDL CHOLESTEROL 13 mg/dL
[2020-05-10 16:23] LABS: MICROALBUM/CREATININE RATIO,UR 46.6 ug/mg (<30.0); MICROALBUMIN,URINE 4.8 mg/dL (0-300.0)
[2020-05-10 17:14] LABS: THYROID STIMULATING HORMONE 2.92 uIU/mL (0.34-5.60)
[2020-05-10 18:25] LABS: ESTIMATED AVERAGE GLUCOSE 140 mg/dL (70-100); HEMOGLOBIN A1c% 6.5 % (4.27-6.07)
== END 2020-05-10 07:26 | disposition home or self-care (01) ==
LOC: LAB.S 07:25
PROVIDERS: ATTEND Internal Medicine
DX: E53.9 Vitamin B deficiency, unspecified (principal); Z79.899 Other long term (current) drug therapy; E78.5 Hyperlipidemia, unspecified; M81.0 Age-related osteoporosis without current pathological fracture; Z13.6 Encounter for screening for cardiovascular disorders; H81.10 Benign paroxysmal vertigo, unspecified ear; I10 Essential (primary) hypertension; I48.91 Unspecified atrial fibrillation; I49.5 Sick sinus syndrome; E11.9 Type 2 diabetes mellitus without complications
CPT/HCPCS: 36415; 80053; 80061; 82043; 82306; 82570; 82607; 83036; 83721; 84443; 85025

== ENCOUNTER 2020-05-29 13:08 | Outpatient (CLI) | payer MEDICARE, OTHER | END 2020-05-29 13:09 | disposition home or self-care (01) | LOC: LAB.S 13:08 | PROVIDERS: ATTEND Internal Medicine Cardiovascular Disease | DX: Z51.81 Encounter for therapeutic drug level monitoring (principal); Z79.899 Other long term (current) drug therapy | CPT/HCPCS: 85610 ==

== ENCOUNTER 2020-06-12 12:37 | Outpatient (CLI) | payer MEDICARE, OTHER | END 2020-06-12 12:38 | disposition home or self-care (01) | LOC: LAB.S 12:37 | PROVIDERS: ATTEND Internal Medicine Cardiovascular Disease | DX: Z51.81 Encounter for therapeutic drug level monitoring (principal); Z79.899 Other long term (current) drug therapy | CPT/HCPCS: 85610 ==

== ENCOUNTER 2020-07-10 12:15 | Outpatient (CLI) | payer MEDICARE, OTHER | END 2020-07-10 12:16 | disposition home or self-care (01) | LOC: LAB.S 12:15 | PROVIDERS: ATTEND Internal Medicine Cardiovascular Disease | DX: Z51.81 Encounter for therapeutic drug level monitoring (principal); Z79.899 Other long term (current) drug therapy | CPT/HCPCS: 36416; 85610 ==

== ENCOUNTER 2020-08-04 12:26 | Outpatient (CLI) | payer MEDICARE, OTHER ==
[2020-08-04 19:55] LABS: ESTIMATED AVERAGE GLUCOSE 128 mg/dL (70-100); HEMOGLOBIN A1c% 6.1 % (4.27-6.07)
== END 2020-08-04 12:27 | disposition home or self-care (01) ==
LOC: LAB.S 12:26
PROVIDERS: ATTEND Internal Medicine
DX: E11.9 Type 2 diabetes mellitus without complications (principal); Z79.899 Other long term (current) drug therapy; Z51.81 Encounter for therapeutic drug level monitoring
CPT/HCPCS: 36415; 36416; 83036; 85610

== ENCOUNTER 2020-08-07 13:54 | Outpatient (CLI) | payer MEDICARE, OTHER ==
--- NOTE | 2020-08-08 16:04 | DEXA Report ---
PROCEDURE: Dexa Spine and/or Hip INDICATIONS: OSTEOPOROSIS TECHNIQUE: Dual energy x-ray absorptiometry (DXA) was performed on a [employer] System. Regions measur ed are the AP Spine, femoral neck, and if needed forearm. COMPARISON: None. FINDINGS: Lumbar Spine: Bone Mineral Density 0.957 g/cm/cm,T score -1.9, osteopenia Left Hip: Bone Mineral Density 0.77 g/cm/cm,T score -2.2, osteopenia Left Femoral Neck: Bone Mineral Density 0.810 g/cm/cm, T score -1.6, osteopenia (T score greater or equal to -1.0: NORMAL) (T score from -1.1 to -2.4: OSTEOPENIA) (T score less than or equal to -2.5 to: OSTEOPOROSIS) Impression: Osteopenia of the lumbosacral spine, left hip overall and left femoral neck. No prior com parison. Patients with diagnosis of osteoporosis or osteopenia should have regular bone mineral density assess ment. For those eligible for Medicare, routine testing is allowed once every 2 years. Testing frequ ency can be increased for patients who have rapidly progressing disease or for those who are receivin g medical therapy to restore bone mass. Reviewed by: Geronimo Diaz MD on 08/08/2020 4:02 PM PDT Approved by: Geronimo Diaz MD on 08/08/2020 4:02 PM PDT Station ID: [id number]
== END 2020-08-07 13:55 | disposition home or self-care (01) ==
LOC: DI 13:54
PROVIDERS: ATTEND Internal Medicine
DX: M85.89 Other specified disorders of bone density and structure, multiple sites (principal)

== ENCOUNTER 2020-08-21 12:53 | Outpatient (CLI) | payer MEDICARE, OTHER | END 2020-08-21 12:54 | disposition home or self-care (01) | LOC: LAB.S 12:53 | PROVIDERS: ATTEND Internal Medicine Cardiovascular Disease | DX: Z51.81 Encounter for therapeutic drug level monitoring (principal); Z79.899 Other long term (current) drug therapy | CPT/HCPCS: 36416; 85610 ==

== ENCOUNTER 2020-09-20 12:59 | Outpatient (CLI) | payer MEDICARE, OTHER | END 2020-09-20 13:00 | disposition home or self-care (01) | LOC: LAB.S 12:59 | PROVIDERS: ATTEND Internal Medicine Cardiovascular Disease | DX: Z51.81 Encounter for therapeutic drug level monitoring (principal); Z79.899 Other long term (current) drug therapy | CPT/HCPCS: 36416; 85610 ==

== ENCOUNTER 2020-10-18 12:33 | Outpatient (CLI) | payer MEDICARE, OTHER | END 2020-10-18 12:34 | disposition home or self-care (01) | LOC: LAB.S 12:33 | PROVIDERS: ATTEND Internal Medicine Cardiovascular Disease | DX: Z51.81 Encounter for therapeutic drug level monitoring (principal); Z79.899 Other long term (current) drug therapy | CPT/HCPCS: 36416; 85610 ==

== ENCOUNTER 2020-11-15 13:11 | Outpatient (CLI) | payer MEDICARE, OTHER | END 2020-11-15 13:12 | disposition home or self-care (01) | LOC: LAB.S 13:11 | PROVIDERS: ATTEND Internal Medicine Cardiovascular Disease | DX: Z51.81 Encounter for therapeutic drug level monitoring (principal); Z79.899 Other long term (current) drug therapy | CPT/HCPCS: 36416; 85610 ==

== ENCOUNTER 2020-12-13 12:29 | Outpatient (CLI) | payer MEDICARE, OTHER | END 2020-12-13 12:30 | disposition home or self-care (01) | LOC: LAB.S 12:29 | PROVIDERS: ATTEND Internal Medicine Cardiovascular Disease | DX: Z51.81 Encounter for therapeutic drug level monitoring (principal); Z79.899 Other long term (current) drug therapy | CPT/HCPCS: 36416; 85610 ==

== ENCOUNTER 2021-01-10 09:50 | Outpatient (CLI) | payer MEDICARE, OTHER | END 2021-01-10 09:51 | disposition home or self-care (01) | LOC: LAB.S 09:50 | PROVIDERS: ATTEND Internal Medicine Cardiovascular Disease | DX: Z51.81 Encounter for therapeutic drug level monitoring (principal); Z79.899 Other long term (current) drug therapy | CPT/HCPCS: 36416; 85610 ==

== ENCOUNTER 2021-02-05 12:42 | Outpatient (CLI) | payer MEDICARE, OTHER | END 2021-02-05 12:43 | disposition home or self-care (01) | LOC: LAB.S 12:42 | PROVIDERS: ATTEND Internal Medicine Cardiovascular Disease | DX: Z51.81 Encounter for therapeutic drug level monitoring (principal); Z79.899 Other long term (current) drug therapy | CPT/HCPCS: 36416; 85610 ==

== ENCOUNTER 2021-03-05 09:48 | Outpatient (CLI) | payer MEDICARE, OTHER | END 2021-03-05 09:49 | disposition home or self-care (01) | LOC: LAB.S 09:48 | PROVIDERS: ATTEND Internal Medicine Cardiovascular Disease | DX: Z51.81 Encounter for therapeutic drug level monitoring (principal); Z79.899 Other long term (current) drug therapy | CPT/HCPCS: 36416; 85610 ==

== ENCOUNTER 2021-03-15 09:45 | Outpatient (CLI) | payer MEDICARE, OTHER ==
[2021-03-15 15:22] LABS: CALCIUM 9.6 mg/dL (8.5-10.3); CREATININE 0.9 mg/dL (0.4-1.0); POTASSIUM 4.6 mmol/L (3.5-5.0)
[2021-03-15 20:11] LABS: ESTIMATED AVERAGE GLUCOSE 148 mg/dL (70-100); HEMOGLOBIN A1c% 6.8 % (4.27-6.07)
== END 2021-03-15 09:46 | disposition home or self-care (01) ==
LOC: LAB.S 09:45
PROVIDERS: ATTEND Internal Medicine Cardiovascular Disease
DX: I10 Essential (primary) hypertension (principal); E11.9 Type 2 diabetes mellitus without complications
CPT/HCPCS: 36415; 80048; 83036

== ENCOUNTER 2021-04-02 13:22 | Outpatient (CLI) | payer MEDICARE, OTHER | END 2021-04-02 13:23 | disposition home or self-care (01) | LOC: LAB.S 13:22 | PROVIDERS: ATTEND Internal Medicine Cardiovascular Disease | DX: Z51.81 Encounter for therapeutic drug level monitoring (principal); Z79.899 Other long term (current) drug therapy | CPT/HCPCS: 36415; 36416; 85610 ==

== ENCOUNTER 2021-05-01 12:21 | Outpatient (CLI) | payer MEDICARE, OTHER | END 2021-05-01 12:22 | disposition home or self-care (01) | LOC: LAB.S 12:21 | PROVIDERS: ATTEND Internal Medicine Cardiovascular Disease | DX: Z51.81 Encounter for therapeutic drug level monitoring (principal); Z79.899 Other long term (current) drug therapy | CPT/HCPCS: 36416; 85610 ==

== ENCOUNTER 2021-06-05 12:12 | Outpatient (CLI) | payer MEDICARE, OTHER | END 2021-06-05 12:13 | disposition home or self-care (01) | LOC: LAB.S 12:12 | PROVIDERS: ATTEND Internal Medicine Cardiovascular Disease | DX: Z51.81 Encounter for therapeutic drug level monitoring (principal); Z79.899 Other long term (current) drug therapy | CPT/HCPCS: 36416; 85610 ==

== ENCOUNTER 2021-07-03 12:12 | Outpatient (CLI) | payer MEDICARE, OTHER | END 2021-07-03 12:13 | disposition home or self-care (01) | LOC: LAB.S 12:12 | PROVIDERS: ATTEND Internal Medicine | DX: Z51.81 Encounter for therapeutic drug level monitoring (principal); Z79.899 Other long term (current) drug therapy | CPT/HCPCS: 36416; 85610 ==

== ENCOUNTER 2021-07-16 07:32 | Outpatient (CLI) | payer MEDICARE, OTHER ==
[2021-07-16 14:48] LABS: BASOPHILS # (AUTO) 0.1 10^3/uL (0.0-0.1); BASOPHILS % (AUTO) 0.8 %; EOSINOPHILS # (AUTO) 0.1 10^3/uL (0.0-0.7); HCT - HEMATOCRIT 45.1 % (37.0-47.0); HGB - HEMOGLOBIN 14.3 g/dL (12.0-16.0); LYMPHOCYTES # (AUTO) 2.3 10^3/uL (1.5-3.5); LYMPHOCYTES % (AUTO) 38.6 %; MEAN CORPUSCULAR HEMOGLOBIN 28.3 pg (27.0-31.0); MEAN CORPUSCULAR HGB CONC 31.7 g/dL (32.0-36.0); MEAN CORPUSCULAR VOLUME 89.1 fL (81.0-99.0); MEAN PLATELET VOLUME 9.7 fL (7.9-10.8); MONOCYTES # (AUTO) 0.6 10^3/uL (0.0-1.0); MONOCYTES % (AUTO) 9.4 %; NEUTROPHILS # (AUTO) 2.9 10^3/uL (1.5-6.6); PLT - PLATELET COUNT 271 10^3/uL (130-450); RED BLOOD COUNT 5.06 10^6/uL (4.20-5.40); RED CELL DISTRIBUTION WIDTH 14.9 % (12.0-15.0)
[2021-07-16 15:26] LABS: THYROID STIMULATING HORMONE 3.44 uIU/mL (0.34-5.60)
[2021-07-16 15:32] LABS: ALBUMIN 4.3 g/dL (3.2-5.5); ALBUMIN/GLOBULIN RATIO 1.4 (1.0-2.2); ALKALINE PHOSPHATASE 48 IU/L (42-121); ALT ALANINE AMINOTRANSFERASE 26 IU/L (10-60); AST ASPARTATE AMINOTRANSFERASE 29 IU/L (10-42); BILIRUBIN,TOTAL 0.8 mg/dL (0.2-1.0); BUN - BLOOD UREA NITROGEN 28 mg/dL (6-20); CALCIUM 9.6 mg/dL (8.5-10.3); CARBON DIOXIDE - CO2 27 mmol/L (21-32); CHLORIDE 101 mmol/L (101-111); CHOL/HDL RATIO 2.4 (<4.4); CHOLESTEROL 197 mg/dL; GFR - MDRD 53 (>89); GLUCOSE 111 mg/dL (70-100); HDL CHOLESTEROL 81 mg/dL; LDL CHOLESTEROL,CALCULATED 101 mg/dL; LDL/HDL RATIO 1.2 (<4.4); POTASSIUM 4.1 mmol/L (3.5-5.0); SODIUM 136 mmol/L (135-145); TOTAL PROTEIN 7.4 g/dL (6.7-8.2); TRIGLYCERIDES 75 mg/dL; VLDL CHOLESTEROL 15 mg/dL
[2021-07-16 15:45] LABS: MICROALBUM/CREATININE RATIO,UR 70.4 ug/mg (<30.0); MICROALBUMIN,URINE 10.7 mg/dL (0-300.0)
[2021-07-16 20:24] LABS: ESTIMATED AVERAGE GLUCOSE 148 mg/dL (70-100); HEMOGLOBIN A1c% 6.8 % (4.27-6.07)
== END 2021-07-16 07:33 | disposition home or self-care (01) ==
LOC: LAB.S 07:32
PROVIDERS: ATTEND Internal Medicine Cardiovascular Disease
DX: Z51.81 Encounter for therapeutic drug level monitoring (principal); E11.9 Type 2 diabetes mellitus without complications; Z79.899 Other long term (current) drug therapy
CPT/HCPCS: 36415; 36416; 80053; 80061; 82043; 82570; 83036; 83721; 84443; 85025; 85610

== ENCOUNTER 2021-08-14 09:50 | Outpatient (CLI) | payer MEDICARE, OTHER | END 2021-08-14 09:51 | disposition home or self-care (01) | LOC: LAB.S 09:50 | PROVIDERS: ATTEND Internal Medicine Cardiovascular Disease | DX: Z51.81 Encounter for therapeutic drug level monitoring (principal); Z79.899 Other long term (current) drug therapy | CPT/HCPCS: 36416; 85610 ==

== ENCOUNTER 2021-08-21 09:10 | Outpatient (CLI) | payer MEDICARE, OTHER | END 2021-08-21 09:11 | disposition home or self-care (01) | LOC: LAB.S 09:10 | PROVIDERS: ATTEND Internal Medicine Cardiovascular Disease | DX: Z51.81 Encounter for therapeutic drug level monitoring (principal); Z79.899 Other long term (current) drug therapy | CPT/HCPCS: 36416; 85610 ==

== ENCOUNTER 2021-11-12 12:15 | Outpatient (CLI) | payer MEDICARE, OTHER | END 2021-11-12 12:16 | disposition home or self-care (01) | LOC: LAB.S 12:15 | PROVIDERS: ATTEND Internal Medicine Cardiovascular Disease | DX: Z51.81 Encounter for therapeutic drug level monitoring (principal); Z79.899 Other long term (current) drug therapy | CPT/HCPCS: 36416; 85610 ==

== ENCOUNTER 2021-12-17 12:57 | Outpatient (CLI) | payer MEDICARE, OTHER | END 2021-12-17 12:58 | disposition home or self-care (01) | LOC: LAB.S 12:57 | DX: Z51.81 Encounter for therapeutic drug level monitoring (principal); Z79.899 Other long term (current) drug therapy | CPT/HCPCS: 36416; 85610 ==

== ENCOUNTER 2022-01-02 12:14 | Outpatient (CLI) | payer MEDICARE, OTHER | END 2022-01-02 12:15 | disposition home or self-care (01) | LOC: LAB.S 12:14 | PROVIDERS: ATTEND Pharmacist | DX: Z51.81 Encounter for therapeutic drug level monitoring (principal); Z79.899 Other long term (current) drug therapy | CPT/HCPCS: 36416; 85610 ==

== ENCOUNTER 2022-02-06 11:52 | Outpatient (CLI) | payer MEDICARE, OTHER | END 2022-02-06 11:53 | disposition home or self-care (01) | LOC: LAB.S 11:52 | PROVIDERS: ATTEND Pharmacist | DX: Z51.81 Encounter for therapeutic drug level monitoring (principal); Z79.899 Other long term (current) drug therapy | CPT/HCPCS: 36416; 85610 ==

== ENCOUNTER 2022-02-18 10:52 | Outpatient (CLI) | payer MEDICARE, OTHER ==
[2022-02-18 14:20] LABS: ESTIMATED AVERAGE GLUCOSE 146 mg/dL (70-100); HEMOGLOBIN A1c% 6.7 % (4.27-6.07)
== END 2022-02-18 10:53 | disposition home or self-care (01) ==
LOC: LAB.S 10:52
PROVIDERS: ATTEND Nurse Practitioner Family
DX: E11.9 Type 2 diabetes mellitus without complications (principal)
CPT/HCPCS: 36415; 83036

== ENCOUNTER 2022-03-13 12:17 | Outpatient (CLI) | payer MEDICARE, OTHER | END 2022-03-13 12:18 | disposition home or self-care (01) | LOC: LAB.S 12:17 | PROVIDERS: ATTEND Pharmacist | DX: Z51.81 Encounter for therapeutic drug level monitoring (principal); Z79.899 Other long term (current) drug therapy | CPT/HCPCS: 36416; 85610 ==

== ENCOUNTER 2022-03-31 09:00 | Outpatient (CLI) | payer MEDICARE, OTHER | END 2022-03-31 09:01 | disposition EMS.NT | LOC: EMS 09:00 | DX: Z04.1 Encounter for examination and observation following transport accident (principal) ==

== ENCOUNTER 2022-04-16 13:25 | Outpatient (CLI) | payer MEDICARE, OTHER ==
[2022-04-16 20:27] LABS: CALCIUM 10.1 mg/dL (8.5-10.3); CREATININE 0.8 mg/dL (0.4-1.0); POTASSIUM 4.5 mmol/L (3.5-5.0)
== END 2022-04-16 13:26 | disposition home or self-care (01) ==
LOC: LAB.S 13:25
PROVIDERS: ATTEND Pharmacist
DX: Z51.81 Encounter for therapeutic drug level monitoring (principal); Z79.899 Other long term (current) drug therapy; I10 Essential (primary) hypertension
CPT/HCPCS: 36415; 36416; 80048; 85610

== ENCOUNTER 2023-01-30 10:16 | Outpatient (CLI) | payer MEDICARE, OTHER ==
--- NOTE | 2023-01-30 11:31 | XRAY Report ---
PROCEDURE: Hips 2V BILAT INDICATIONS: BILATERAL HIP JOINT PAIN TECHNIQUE: 3 views of the pelvis and both hips were acquired. COMPARISON: None. FINDINGS: Bones: No fractures or dislocations. Mild degenerative changes of both hips with mild joint space na rrowing of the left hip. No suspicious bony lesions. Degenerative changes of the sacroiliac joint. Soft tissues: No suspicious soft tissue calcifications or masses. IMPRESSION: 1. No acute bony abnormality. 2. Mild degenerative changes of both hips. Reviewed by: Andrew Blum on 01/30/2023 10:30 AM [facility] Approved by: Andrew Blum on 01/30/2023 10:30 AM [facility] Station ID: [id number]
== END 2023-01-30 10:17 | disposition home or self-care (01) ==
LOC: DI.S 10:16
PROVIDERS: ATTEND Nurse Practitioner Family
DX: M16.0 Bilateral primary osteoarthritis of hip (principal)

== ENCOUNTER 2023-09-25 09:48 | Outpatient (CLI) | payer MEDICARE, BC ==
--- NOTE | 2023-09-25 10:56 | Sleep Patient Instructions ---
Sleep Center Visit Summary - Patient Visit Information Reason for Visit: Initial consult for evaluation of sleep disordered breathing and other sleep issues. - Patient Instructions Instructions Attached: Sleep Study Additional Instructions: You will be completing a sleep study, either an in-lab polysomnography (PSG) or home sleep study (HST). You will follow-up in the sleep care office after the sleep study is completed to hear the results and talk about therapy, if needed. You will be called by our office staff to schedule this appointment, but you may contact us with any questions. - Clinic Information Contact: [facility] [address] [place] [address] [email or web address] T: [phone]
--- NOTE | 2023-09-25 11:03 | SLEEP CARE CONSULTATION ---
Information from patient questionnaire entered by Oscar Magana. I have reviewed and concur with the information entered by Oscar Magana. This document represents the service I personally performed and the decisions made by me, Kayleen Ward ARNP. History of Present Illness Service Date and Time: 09/25/2023 0948 Reason for Visit: New patient Chief Complaint: reports: Insomnia, Frequent awakenings at night, Other (FIND OUT WHY MY BLOOD WORK IS HIGH) Usual bedtime: [id number] Time it takes to fall asleep: LONG TIME Snores at night: No Observed to quit breathing while asleep: No Sleeps alone due to snoring: No Number of times waking at night: 3 Reasons for waking at night: reports: Bathroom, Other (UNKNOWN). denies: Choking, Gasping for air Toss, Turn, or Twitch while sleeping: Yes Recalls having dreams: Yes Usually gets out of bed at: 3--tries to make 0630 Feels refreshed in the morning: No (not lately) Morning headache: No Sleepy or fatigued during the day: No Ever fallen asleep while driving: No Takes day naps: Yes (occasionally-will rest with eyes closed) Dreams during day naps: No Prior sleep studies: No Additional HPI information: I had the pleasure of seeing ROBEL VASQUES today regarding the possibility of her having a sleep disorder. Her current complaints are frequent night awakenings, insomnia and find out why blood work is high. She say she had a bad headache and just "did not feel good". She was seen in the ED and went through a lot of testing but every thing was negative. She says she feels hot or cold. She just does not feel right. She says she gets up a lot to urinate. She will lay down and it takes a long time to fall asleep. She says she is waking up at night and feeling "wide awake" several times a night. She is not able to get back to sleep easily. She is starting to get leg cramps too. Her doctor saw some high blood counts and referred her here for evaluation. - Parasomnia Symptoms Ever been unable to move upon waking from sleep: No Walks in sleep: No Talks in sleep: No Ever acted out dreams in sleep: No Ever felt weak in the knees when startled or emotional: No Bothered by creepy, crawly, restless sensations in legs: No Problems with memory or concentration: No Subjective Initial [place] Sleepiness Scale score: 5 (09/08/23) Past Medical History Past Medical History: reports: Hypertension, Diabetes, Arrythmia, Other (PACEMKER) Social History The patient's occupation is a RE. Patient is / and lives in [place]. Have you smoked in the past 12 months: No Alcohol use: No Caffeine use: Yes Caffeine amount and frequency: COFFEE OCCASIONALLY Family History Family history of sleep disordered breathing: Yes Family Hx Sleep Apnea: Mother: Snoring, Sleep apnea - Untreated, Father: Snoring, Sibling: Snoring Allergies and Home Medications Known drug allergies: Yes (as listed) Drug allergies reviewed: Yes Home medication list reviewed: Yes (as listed) Allergy and home medication list: Allergies codiene Allergy (Uncoded 09/25/23 09:58) Unknown Home Medications Medication Instructions Recorded Confirmed Last Taken Type Amlodipine Besylate 5 mg ORAL DAILY 02/08/14 09/25/23 02/08/14 06:00 History Metoprolol Succinate 200 mg ORAL DAILY 02/08/14 09/25/23 02/07/14 20:00 History Warfarin [Coumadin] See Rx Instructions .ROUTE .COMPLEX 04/23/14 09/25/23 Unknown History Rosuvastatin Calcium See Rx Instructions .ROUTE .COMPLEX 09/25/23 09/25/23 Unknown History Spironolactone [Aldactone] See Rx Instructions .ROUTE .COMPLEX 09/25/23 09/25/23 Unknown History Review of Systems Weight loss over past 5 years: 7 Cardiovascular: reports: high blood pressure, leg or foot swelling Urinary: reports: frequency Psychiatric: reports: claustrophobia. denies: anxiety, depression Ear/Nose/Throat: reports: dry mouth/throat, tonsillectomy Endocrine: reports: too hot or cold, excessive thirst Musculoskeletal: reports: muscle pain or cramping Immunologic: reports: itching Physical Exam Vital signs obtained and entered by: OSCAR Blake MA Blood Pressure: 135/81 (LEFT ARM) Cuff size: ADLT SMALL Heart Rate: 67 O2 Saturation: 99 Height: 5 ft 2 in Weight: 114 lb (with clothes/shoes on) Body Mass Index: 20.8 BMI Classification: Normal Neck circumference: 13.75 Mouth and throat: narrow oropharynx Soft palate: long Hard palate: normal Uvula: normal Uvula visualization: 0% Mallampati Class IV Tongue: normal in size Tonsils: absent bilaterally Neck: normal w/o lymphadenopathy or thyromegaly Heart: regular rate and rhythm, irregular rhythm (slight) Lungs: clear bilaterally Impression and Plan 1. Suspected Obstructive Sleep Apnea-Hypopnea Syndrome, as suggested by a history of frequent awakening during the night, unrefreshed sleep, and insomnia. Narrow oropharynx and obesity are common predisposing factors for obstructive sleep apnea-hypopnea syndrome. I recommend proceeding to polysomnography to confirm the diagnosis and to assess severity. If the patient has significant sleep disordered breathing, a manual CPAP titration study will also be performed to find the optimal treatment pressure. I informed the patient of what the sleep studies involve and after some discussion, obtained agreement to proceed. The pathophysiology of obstructive sleep apnea-hypopnea syndrome was discussed with the patient and health risks of cardiovascular and cerebrovascular disease if not treated. Risks of drowsy driving discussed in detail and patient advised to avoid long distance driving and to pullman car repairer at the first sign of drowsiness. Patient agreed to plan. * Schedule polysomnography * Avoid long distance driving or driving when feeling sleepy. * Review instructions provided by trained office staff on how to prepare for the sleep study. * Return for follow-up after sleep study completed. Plan: PSG and followup Visit Type: In Office Time Spent with Patient (minutes): 32 Provider Statement: I spent 100% of the Face to Face Visit with the patient with greater than 50% spent counseling the patient and coordination of care.
[2023-09-25 11:06] VITALS: BP 135/81; O2SAT 99
== END 2023-09-25 09:49 | disposition home or self-care (01) ==
LOC: SC 09:48
PROVIDERS: ATTEND Nurse Practitioner Family
DX: G47.8 Other sleep disorders (principal); G47.00 Insomnia, unspecified; R51.9 Headache, unspecified
CPT/HCPCS: 99203; G0463; 99212

== ENCOUNTER 2023-10-23 19:38 | Outpatient (CLI) | payer MEDICARE, BC | END 2023-10-23 19:39 | disposition home or self-care (01) | LOC: SC 19:38 | PROVIDERS: ATTEND Nurse Practitioner Family | DX: G47.31 Primary central sleep apnea (principal); G47.61 Periodic limb movement disorder | CPT/HCPCS: 95810 ==

== ENCOUNTER 2023-11-04 16:58 | Outpatient (CLI) | payer MEDICARE, BC ==
--- NOTE | 2023-11-04 16:41 | SLEEP CARE CONSULTATION ---
Information from patient questionnaire entered by Josafat Ahumada. I have reviewed and concur with the information entered by Josafat Ahumada. This document represents the service I personally performed and the decisions made by , Kayleen Ward ARNP. History of Present Illness Service Date and Time: 11/04/2023 1600 Initial [place] Sleepiness Scale score: 5 (09/25/23) Current [place] Sleepiness Scale score: 1 (11/04/23) Additional HPI information: ROBEL VASQUES returns via telephone appointment for follow up and results of the recently performed polysomnography. The sleep study done on 10/23/23 showed mild central sleep apnea with an average AHI of 8 and caryn oxygen saturation of 92%. She had severe PLMs contributing to sleep fragmentation. I explained the pathophysiology behind obstructive sleep apnea. We then spent quite a bit of time discussing different treatment options. For mild obstructive sleep apnea, surgery and oral appliance are alternatives to nasal CPAP therapy but in moderate or severe cases, nasal CPAP is the most effective and reliable treatment. I reviewed the impact of weight changes on sleep apnea and strongly recommended losing weight. After some discussion, the patient opted to go with the nasal CPAP therapy. A manual titration study will be ordered to find optimal pressure. Patient does not drink alcohol. Patient was cautioned about risks of drowsy driving until sleepiness symptoms resolve. Patient denies drowsy driving. Sleep Study - Results Prior sleep studies: No Polysomnography/Home Sleep Study results: IMPRESSION: The quality of the study is good. The patient had poor sleep efficiency. The sleep architecture was abnormal for sleep fragmentation and lack of REM sleep. Respiratory monitoring showed mild central sleep apnea and Eladio-Santiago respiration (AHI = 8.0). There was no hypoxia (caryn oxygen saturation of 92%). The patient slept mostly supine (supine AHI = 10.3; non-supine = 0.00). There was severe periodic leg movement of sleep, contributing to the sleep fragmentation. Cardiac rhythm was atrial fibrillation with pacer activity. No abnormal behavior (parasomnia) observed during the night. Allergies and Home Medications Known drug allergies: Yes (as listed) Drug allergies reviewed: Yes Home medication list reviewed: Yes (no changes) Allergy and home medication list: Allergies codiene Allergy (Uncoded 09/25/23 10:15) Unknown Review of Systems Review of systems same as previous: Yes (no changes) Physical Exam Vital signs obtained and entered by: Kayleen Quesada NP Height: 5 ft 3 in Weight: 115 lb (per pt) Body Mass Index: 20.3 BMI Classification: Normal Impression and Plan 1. Central Sleep Apnea-Hypopnea Syndrome, mild, with lowest oxygen saturation of 92% and Eladio-Santiago breathing. Obviously this is the cause of the patients symptoms of unrefreshed sleep, and excessive daytime sleepiness. Positive pressure therapy could benefit hypertension, diabetes and arrhythmia. As mentioned above, the patient will be started on nasal autoCPAP therapy. A manual titration study will be completed to find optimal treatment pressure. Compliance guidelines also reviewed. 2. Periodic limb movement, severe, that did not fragment patients sleep. Periodic limb movement of sleep (PLMS) is characterized by episodes of repetitive limb movements that occur during sleep and usually involve the lower limbs. The etiology is unknown. Patient was advised that no treatment is needed at this time. If symptoms increase, then further evaluation is indicated. * Titration study * Avoid supine sleep until using CPAP. * Return after titration study to hear results and initiate therapy. Plan: Titration study and follow up Visit Type: Telehealth Phone Video Type: Doximity Patient Location: Home Location of Provider: Office Patient agrees and consents to this telehealth visit type: Yes Patient agrees to have their insurance billed: Yes Time Spent with Patient (minutes): 22 Provider Statement: I spent 100% of the Telehealth Phone Call with the patient with greater than 50% spent counseling the patient and coordination of care.
== END 2023-11-04 16:59 | disposition home or self-care (01) ==
LOC: SC 16:58
PROVIDERS: ATTEND Nurse Practitioner Family
DX: G47.31 Primary central sleep apnea (principal); G47.61 Periodic limb movement disorder
CPT/HCPCS: 99442